=== PATIENT | male | born 1935 | race Caucasian/White ===

== ENCOUNTER → 2022-12-26 10:23 | Outpatient (CLI) | payer OTHER, SELFPAY ==
--- NOTE | ~2022-12-26 | MR_ITS ---
MRI of the right foot CLINICAL HISTORY: Osteomyelitis TECHNIQUE: Axial T1-weighted, T1 fat-sat, and T2 fat-sat images, coronal T1-weighted and proton-densi ty fat-sat, and sagittal T1-weighted and STIR images were acquired. Following intravenous administrat ion of 15 cc MultiHance gadolinium, T1-weighted fat-sat imaging was performed in the axial, coronal, and sagittal planes. FINDINGS: There is a soft tissue ulcer at the medial aspect of the great toe at the region of the fir st MTP joint. There is reactive marrow edema in the distal aspect of the first metatarsal, and the pr oximal aspect of the first proximal phalanx, consistent with reactive marrow edema or stress response . T1 marrow signal is relatively preserved in these regions. There is hypointense T1 marrow signal wi th edema in the medial hallux sesamoid. Early osteomyelitis cannot be excluded involving the sesamoid . There is underlying diffuse high-grade chondral malacia the first MTP joint, with joint space narrowi ng and probable small osteophytes. Large first MTP joint effusion is present, with apparent postcontr ast enhancement. Remaining joint spaces are unremarkable. Collateral ligaments appear intact. There is diffuse nonspecific edema of the intrinsic plantar musculature of the foot. Visualized plant ar fascia intact. There is mild dorsal subcutaneous soft tissue edema. IMPRESSION: Probable reactive marrow edema or stress response in the distal first metatarsal and first proximal p halanx rather than osteomyelitis. Possible osteomyelitis versus stress response in the medial hallux sesamoid. Large first MTP joint effusion with apparent postcontrast enhancement. Early septic arthritis is a co nsideration versus reactive joint effusion due to underlying moderate to advanced degenerative joint disease. Consider joint aspiration as indicated. Soft tissue ulcer at the medial aspect of the first MTP joint region. Nonspecific myositis the plantar musculature of the foot. Reviewed, dictated and finalized at location . IMPRESSION: Probable reactive marrow edema or stress response in the distal first metatarsa l and first proximal phalanx rather than osteomyelitis. Possible osteomyelitis versus stress response in the medial hallux sesamoid. Large first MTP joint effusion with apparent postcontrast enhancement. Early se ptic arthritis is a consideration versus reactive joint effusion due to underly ing moderate to advanced degenerative joint disease. Consider joint aspiration as indicated. Soft tissue ulcer at the medial aspect of the first MTP joint region. Nonspecific myositis the plantar musculature of the foot.
== END ==
PROVIDERS: PCP Internal Medicine Infectious Disease; Visit Provider Internal Medicine Infectious Disease
DX: M86.9 Osteomyelitis, unspecified (principal); M25.474 Effusion, right foot; L97.519 Non-pressure chronic ulcer of other part of right foot with unspecified severity
CPT/HCPCS: 73720; A9577

== ENCOUNTER 2024-08-20 09:02 | Observation (INO) | payer MEDICARE, SELFPAY ==
[2024-08-20] VITALS (23 sets, daily range): BP systolic 93–120; BP diastolic 52–84; PULSE 60–83; RESP 12–18; TEMP 36.4–36.9; O2SAT 92–100; BMI 24.1
--- NOTE | ~2024-08-20 | CT_ITS ---
EXAMINATION: CT brain wo con DATE: 08/20/2024 09:33 INDICATION: Altered mental status. TECHNIQUE: Computed tomography (CT) of the head was performed without intravenous contrast. The mA wa s adjusted according to patient size. Iterative reconstruction technique was employed. The dose-lengt h product was 605.33 mGy-cm. 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 There are scattered areas of low atten uation in the cerebral white matter, which is within normal limits for the patient's age. There is n o intracranial hemorrhage, acute infarction, or abnormal intracranial mass lesion. The ventricles are normal in size. There are likely changes of ocular lens replacement surgeries. There is mucosal thic kening in the paranasal sinuses. The mastoid air cells are normal. IMPRESSION: 1. Old infarct in the left cerebellum. Reviewed, dictated and finalized at location A. GLUE MAKER
--- NOTE | ~2024-08-20 | XR_ITS ---
XR chest 1V portable 08/21/2024 10:32 Indication: Pneumonia Procedure: AP portable chest Comparison: No prior studies for comparison. Findings: Heart size normal. Pacemaker leads are stable. No focal air space disease, pulmonary edema, pleural effusion or suspected pneumothorax. There is a left shoulder arthroplasty partially visualiz ed. There is osteoarthritis of the shoulders. Impression: 1: No acute cardiopulmonary disease. Reviewed, dictated and finalized at location B. ANALYST Impression: 1: No acute cardiopulmonary disease.
--- NOTE | 2024-08-20 09:04 | ECG_ITS ---
Test Date: 2024-08-20 09:07:41 Measurements Intervals [place] Rate: 71 P: 0 SC: 0 QRS: -74 QRSD: 178 T: 93 QT: 462 QTc: 505 Interpretive Statements ELECTRONIC VENTRICULAR PACEMAKER ABNORMAL RHYTHM ECG No previous ECG available for comparison Electronically Signed On 08-20-2024 09:56:26 PERSONAL INJURY ATTORNEY by Hever Aguilar M.D.
--- NOTE | 2024-08-20 09:23 | PC.NURSE ---
Upon arrival, pt unable to state birthdate. 0924 Pt able to state birthdate for registration.
[2024-08-20 09:28] LABS: Basophils Absolute Auto 0.1 K/mm3 (0.0-0.1); Basophils Percent Auto 1.1 % (0.2-1.2); Eosinophils Absolute Auto 0.2 K/mm3 (0-0.3); Eosinophils Percent Auto 2.6 % (0-4.4); Hematocrit 36.5 % (42.0-52.0); Hemoglobin 11.5 g/dL (14.0-18.0); Immature Granulocyte Absolute 0.04 K/mm3 (0.00-0.031); Immature Granulocyte Percent A 0.6 % (0-0.5); Lymphocytes Absolute Auto 1.79 K/mm3 (0.9-3.2); Lymphocytes Percent Auto 25.5 % (18.3-44.2); Mean Corpuscular HGB Conc 31.5 g/dl (32-36); Mean Corpuscular Hemoglobin 31.7 pg (26-34); Mean Corpuscular Volume 100.6 fl (80-100); Monocytes Absolute Auto 0.7 K/mm3 (0.1-0.6); Monocytes Percent Auto 9.8 % (2.6-8.5); Neutrophils Absolute Auto 4.2 K/mm3 (1.3-6.7); Neutrophils Percent Auto 60.4 % (45.5-73.1); Platelet Count Result 142 k/mm3 (150-375); Red Blood Count 3.63 M/mm3 (4.6-6.20); Red Cell Distribution Width 14.6 % (11.5-14.5)
--- NOTE | 2024-08-20 09:33 | PC.NURSE ---
0933 [facility] staff called to ask how much longer pt will be here, this RN let them know no results have come back yet since pt has only been here for 29 minutes.
[2024-08-20 09:39] LABS: Alanine Aminotransferase 21 U/L (6-50); Albumin Level 2.9 g/dL (3.5-5.1); Alkaline Phosphatase 68 U/L (38-126); Anion Gap 6 mmol/L (4-12); Aspartate Amino Transferase 26 U/L (17-59); Bilirubin,Total 0.7 mg/dL (0.2-1.3); Blood Urea Nitrogen 31 mg/dL (9-20); Calcium 8.3 mg/dL (8.4-10.2); Carbon Dioxide 22 mmol/L (22-30); Chloride 112 mmol/L (98-107); Estimated CRCL calculation 25 ml/min; Estimated Glomerular Filt Rate 30; Glucose 161 mg/dL (65-110); Potassium 3.7 mmol/L (3.4-5.0); Sodium 140 mmol/L (137-145)
[2024-08-20 09:42] LABS: INR 2.7; Prothrombin Time 29.7 Seconds (11.1-14.7)
[2024-08-20 09:43] LABS: Partial Thromboplastin Time 55.6 Seconds (22.3-36.8)
[2024-08-20 09:53] LABS: Add Urine Microscopic? YES; Appearance Urine Cloudy (Clear); Bacteria Urine Rare /hpf; Bilirubin Urine 1+ (Negative); Blood Urine Negative (Negative); Color Urine Dark Yellow (Yellow); Glucose Urine UA 3+ mg/dL (Negative); Hyaline Casts Urine Present /lpf; Ketones Urine Trace mg/dL (Negative); Leukocyte Esterase Ur Negative LEU/UL (Negative); Mucus Urine Present /lpf; Need Manual Microscopic Reviewed; Nitrate Urine Negative (Negative); Non Pathogenic Casts >20; Protein Urine 3+ mg/dL (Negative); Specific Grav Ur 1.027 (1.001-1.035); Squamous Epithelial Cell Urine Occasional /hpf (Few); pH Urine 5.5 (5.0-9.0)
--- NOTE | 2024-08-20 10:45 | ED_ITS ---
HPI - General Adult General Chief complaint: Altered Mental Status Stated complaint: ams Time Seen by Provider: 08/20/24 09:15 History of Present Illness HPI narrative: 89-year-old male present to the emergency department for evaluation for episode of altered mental status this morning. Patient was walking to breakfast when he paused and sit in the hallway and staff felt that he was confused they were able to ulcer him to a site area and confirmed that he was confused, patient does not recall this conversation. Patient was transferred to the emergency department by EMS. Upon arrival to the emergency department patient states he feels back to his baseline denies any complaints. Daughter is present states that the patient does appear back to his baseline but is still having some intermittent confusion. Related Data Home Medications Medication Instructions Recorded Confirmed Baby Aspirin 81 mg PO DAILY 08/20/24 08/20/24 Vitamin 28 - 800 tablet PO DAILY 08/20/24 08/20/24 albuterol sulfate 90 mcg/actuation 2 puff inhalation Q6H PRN 08/20/24 08/20/24 aerosol inhaler Shortness Of Breath Or Wheezing amlodipine 5 mg tablet 5 mg PO DAILY 08/20/24 08/20/24 atorvastatin 80 mg tablet 80 mg PO DAILY 08/20/24 08/20/24 budesonide-formoterol HFA 160 2 puff inhalation BID 08/20/24 08/20/24 mcg-4.5 mcg/actuation aerosol inhaler carvedilol 25 mg tablet 25 mg PO BID 08/20/24 08/20/24 cholecalciferol (vitamin D3) 25 mcg PO BID 08/20/24 08/20/24 cyanocobalamin (vitamin B-12) 1,000 mcg PO DAILY 08/20/24 08/20/24 dapagliflozin propanediol 5 mg 5 mg PO DAILY 08/20/24 08/20/24 tablet (Farxiga) donepezil 5 mg tablet 5 mg PO DAILY 08/20/24 08/20/24 gabapentin 100 mg capsule 200 mg PO BID 08/20/24 08/20/24 glipizide 2.5 mg tablet, extended 2.5 mg PO DAILY 08/20/24 08/20/24 release 24 hr ketoconazole 2 % shampoo See Rx Instructions .Route .COMPLEX 08/20/24 08/20/24 ketoconazole 2 % topical cream See Rx Instructions .Route 08/20/24 08/20/24 .COMPLEX PRN fungal infection lisinopril 40 mg tablet 40 mg PO DAILY 08/20/24 08/20/24 memantine 10 mg tablet 10 mg PO BID 08/20/24 08/20/24 montelukast 10 mg tablet 10 mg PO DAILY 08/20/24 08/20/24 omeprazole 20 mg capsule,delayed 20 mg PO DAILY 08/20/24 08/20/24 release rivaroxaban 20 mg tablet (Xarelto) 20 mg PO DAILY 08/20/24 08/20/24 Allergies Allergy/AdvReac Type Severity Reaction Status Date / Time daptomycin Allergy Unknown Verified 08/20/24 10:54 vancomycin Allergy Rash Verified 08/20/24 10:54 Review of Systems Review of Systems: All systems reviewed & are unremarkable except as noted in HPI and below PMFSH Past Medical History Medical History (Updated 08/20/24 @ 16:52 by Giovanna Castillo PA-C) 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 CT Chronic anticoagulation Gastroesophageal reflux disease Hyperlipidemia Hypertension Memory impairment Type 2 diabetes mellitus Surgical History Surgical History (Updated 08/20/24 @ 16:50 by Giovanna Castillo PA-C) History of permanent cardiac pacemaker placement Social History Social History (Updated 08/20/24 @ 16:50 by Giovanna Castillo PA-C) Social History: Surrogate medical decision maker: Code status: Smoking status: Former smoker Alcohol intake: former Substance use: never Do You Feel Safe in your Home?: Yes Lack of Transportation: No Lack of Food: Never True Current Housing: I Have Housing Concerned About Future Housing: No Difficulty Paying Gas/Electric Bills: No Difficulty Paying for Meds: No Currently Unemployed: No Education: High School Diploma/GED Difficulty w/ Childcare or Family Care: No Additional living arrangements comments: [place]. Spiritual care concerns: No Exam Narrative: APPEARANCE: Well appearing, no pain, no distress, well-nourished. HEAD: normocephalic, atraumatic. EYES: PERRLA/EOMI, conjunctivae clear. NOSE: Normal no drainage EARS:TMS clear with good light reflex. THROAT: Pharynx clear, no exudate. NECK: Supple. No adenopathy, no masses. RESPIRATORY: Airway patent, respirations nonlabored. Clear to auscultation bilaterally, no rales, rhonchi, wheezing. CARDIOVASCULAR: Regular rate and rhythm without murmurs rubs or gallops. ABDOMINAL: Soft, nontender, nondistended, normal bowel sounds MUSCULOSKELETAL: Moves all extremities. Strength/ROM intact, No edema, No calf tenderness. NEURO: Alert. Cranial nerves II through XII intact. Good gait. Good coordination SKIN: Warm, dry. Normal Color Course Course Emergency Course: The patient was admitted Vital Signs Vital signs: Vital Signs Temperature 97.6 F 08/20/24 08:59 Pulse Rate 70 08/20/24 08:59 Respiratory Rate 15 08/20/24 08:59 Blood Pressure 105/65 08/20/24 08:59 Pulse Oximetry 99 08/20/24 08:59 Oxygen Delivery Room Air 08/20/24 08:59 Temperature 98.5 F 08/20/24 16:39 Pulse Rate 66 08/20/24 16:39 Respiratory Rate 18 08/20/24 16:39 Blood Pressure 120/55 L 08/20/24 16:00 Pulse Oximetry 100 08/20/24 16:00 Oxygen Delivery Room Air 08/20/24 15:15 Medical Decision Making MDM Narrative Medical decision making narrative: 89-year-old male presenting to the emergency department for evaluation for altered mental status. Patient is afebrile with no leukocytosis and hemoglobin of 11.5. Patient's creatinine is 2.1 UA was concerning for urinary tract infection. Head CT showed no acute abnormality but did show an old infarct. Patient is back to his normal baseline per family. Patient was able to ambulate in the emergency department without issue. Patient was offered admission if he felt too weak to be cared for at his independent living but patient states he feels he is able to walk the distance to dinner. Patient will be discharged home. Patient will be started on Keflex for home for urinary tract infection. All questions concerns were addressed and patient was comfortable with plan for discharge. Prior to discharge patient had a large volume of emesis and a near syncopal episode. Patient was placed back in his room and patient family were agreeable to admission at this time Differential Diagnosis Differential Diagnosis: UTI, pneumonia, subdural hematoma, subarachnoid hemorrhage Vital Signs Vital Signs: Vital Signs Temperature 97.6 F 08/20/24 08:59 Pulse Rate 70 08/20/24 08:59 Respiratory Rate 15 08/20/24 08:59 Blood Pressure 105/65 08/20/24 08:59 Pulse Oximetry 99 08/20/24 08:59 Oxygen Delivery Room Air 08/20/24 08:59 Temperature 98.5 F 08/20/24 16:39 Pulse Rate 66 08/20/24 16:39 Respiratory Rate 18 08/20/24 16:39 Blood Pressure 120/55 L 08/20/24 16:00 Pulse Oximetry 100 08/20/24 16:00 Oxygen Delivery Room Air 08/20/24 15:15 Lab Data Lab results reviewed: Yes I reviewed the patient's lab results. 08/20/24 09:19 08/20/24 09:19 Labs: Lab Results 08/20/24 08/20/24 Range/Units 09:19 12:52 WBC 7.0 (4.5-10.0) K/mm3 RBC 3.63 L (4.6-6.20) M/mm3 Hgb 11.5 L (14.0-18.0) g/dL Hct 36.5 L (42.0-52.0) % MCV 100.6 H (80-100) fl MCH 31.7 (26-34) pg MCHC 31.5 L (32-36) g/dl RDW 14.6 H (11.5-14.5) % Plt Count 142 L (150-375) k/mm3 MPV 9.0 (7.4-10.4) fl Immature Gran % (Auto) 0.6 H (0-0.5) % Neut % (Auto) 60.4 (45.5-73.1) % Lymph % (Auto) 25.5 (18.3-44.2) % [place] % (Auto) 9.8 H (2.6-8.5) % Eos % (Auto) 2.6 (0-4.4) % Baso % (Auto) 1.1 (0.2-1.2) % Lymph # (Auto) 1.79 (0.9-3.2) K/mm3 [place] # (Auto) 0.7 H (0.1-0.6) K/mm3 Eos # (Auto) 0.2 (0-0.3) K/mm3 Baso # (Auto) 0.1 (0.0-0.1) K/mm3 Abs Immat Gran (auto) 0.04 H (0.00-0.031) K/mm3 Absolute Neuts (auto) 4.2 (1.3-6.7) K/mm3 Absolute Nucleated RBC 0.000 (0.0-0.012) K/mm3 Nucleated RBC % 0.0 (0.0-0.2) % PT 29.7 H (11.1-14.7) Seconds INR 2.7 APTT 55.6 H (22.3-36.8) Seconds Sodium 140 (137-145) mmol/L Potassium 3.7 (3.4-5.0) mmol/L Chloride 112 H (98-107) mmol/L Carbon Dioxide 22 (22-30) mmol/L Anion Gap 6 (4-12) mmol/L BUN 31 H (9-20) mg/dL Creatinine 2.10 H (0.7-1.3) mg/dL Estim Creat Clear Calc 25 ml/min Estimated GFR 30 L (59 - ) Glucose 161 H (65-110) mg/dL Calcium 8.3 L (8.4-10.2) mg/dL Total Bilirubin 0.7 (0.2-1.3) mg/dL AST 26 (17-59) U/L ALT 21 (6-50) U/L Alkaline Phosphatase 68 (38-126) U/L Total Protein 6.0 L (6.3-8.2) g/dL Albumin 2.9 L (3.5-5.1) g/dL Urine Color Dark yellow (Yellow) Urine Appearance Cloudy H (Clear) Urine pH 5.5 (5.0-9.0) Ur Specific [place] 1.027 (1.001-1.035) Urine Protein 3+ H (Negative) mg/dL Urine Glucose (UA) 3+ H (Negative) mg/dL Urine Ketones Trace H (Negative) mg/dL Ur Blood (Man) Negative (Negative) Urine Nitrate Negative (Negative) Urine Bilirubin 1+ H (Negative) Urine Urobilinogen 1.0 (<2.0) mg/dL Add Ur Microanalysis Reviewed Leukocyte Esterase Rfl Negative (Negative) CORA/UL Urine RBC 3-5 H (0-2) /hpf Urine WBC 11-20 H (0-3) /hpf Ur Squamous Epith Cells Occasional (Few) /hpf Urine Bacteria Rare /hpf Urine Casts >20 Hyaline Casts Present (None) /lpf Urine Mucus Present /lpf Group A Strep (PCR) Not detected (Negative) Imaging Data Radiologist's impression: Impressions Head CT 08/20/24 09:38 IMPRESSION: 1. Old infarct in the left cerebellum. Discharge Plan Discharge Clinical Impression: Altered mental status, Acute UTI Patient Disposition: Still a Patient Condition: Stable
[2024-08-20] MEDS: SODIUM CHLORIDE 0.9% IV 1,000 ML 999 ML IV CONT (11:08)
--- NOTE | 2024-08-20 11:14 | PC.NURSE ---
Meal tray ordered for pt.
[2024-08-20 13:27] LABS: Strep Group A RT-PCR NOT DETECTED (Negative)
--- NOTE | 2024-08-20 14:05 | PM.IMHP ---
H&P: HPI History of Present Illness Date/Time: 08/20/24 14:45 Chief Complaint: Altered mental status. Narrative: This is an 89-year-old male with history of dementia, paroxysmal atrial fibrillation, status post permanent pacemaker implantation, right lower extremity deep venous thrombosis, hypertension, hyperlipidemia, asthma, type 2 diabetes mellitus, gastroesophageal reflux disease, and prostate cancer who presented to the emergency department via EMS from [place] for evaluation of altered mental status. He is a poor historian and seems have significant short-term memory loss and a majority the following is obtained via a review of his EMR. He is also not entirely cooperative as ?I just want to bed and I do not want answer any more questions.? According to the ED notes, the patient was walking to breakfast when he paused and sat down the hallway. He seems to be much more confused than baseline and was brought in for evaluation. There are no reports of recent falls, head trauma, or illnesses. The patient has no complaints but again he is not answering all of my questions. He did specifically deny headache, cold and flu symptoms, chest pain, shortness of breath, abdominal pain, nausea, vomiting, diarrhea, and dysuria. In the ED: He was afebrile on arrival with blood pressures in the upper 90s to lower 100s systolic. The remainder of his vital signs were stable. Labs were significant for a WBC count of 7.0, hemoglobin 11.5, MCV 100.6, platelet 142, PT 29.7, INR 2.7, PTT 55.6, BUN 31, creatinine 2.10, glucose 161, total protein 6.0, albumin 2.9. Urinalysis was positive for 3+ protein, 3+ glucose, trace ketones, 1+ bilirubin, 3 to 5 rbc's, and 11 to 20 WBC. Rare bacteria, occasional squamous cells, and casts noted on microscopy. 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 He was given a L of normal saline and ceftriaxone 1 g for possible urinary tract infection. With shared medical decision-making, family felt more comfortable sending the patient back to [place]. Just before he was being discharged from the ED he passed a large bowel movement and had a brief episode of unresponsiveness and he is being admitted in this setting. Review of Systems Review of Systems: Unable to be obtained accurately given his significant memory loss. 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 Chronic anticoagulation Deep vein thrombosis of right lower extremity Dementia Gastroesophageal reflux disease Hyperlipidemia Hypertension Paroxysmal atrial fibrillation Prostate cancer Type 2 diabetes mellitus Surgical History Surgical History (Updated 08/20/24 @ 22:49 by Giovanna Castillo PA-C) History of permanent cardiac pacemaker placement (08/12/23) Family History Family History (Updated 08/20/24 @ 22:50 by Giovanna Castillo PA-C) Other Family history unknown Social History Social History (Updated 08/20/24 @ 22:50 by Giovanna Castillo PA-C) Social History: Healthcare power of commonwealth attorney: Jayla Ferguson. Code status: Do not resuscitate. Smoking status: Former smoker Alcohol intake: former Substance use: never Do You Feel Safe in your Home?: Yes Lack of Transportation: No Lack of Food: Never True Current Housing: I Have Housing Concerned About Future Housing: No Difficulty Paying Gas/Electric Bills: No Difficulty Paying for Meds: No Currently Unemployed: No Education: High School Diploma/GED Difficulty w/ Childcare or Family Care: No Additional living arrangements comments: [place]. Spiritual care concerns: No Meds Home Medications and Allergies Home Medications Medication Instructions Recorded Confirmed Type Baby Aspirin 81 mg PO DAILY 08/20/24 08/20/24 History Vitamin 28 - 800 tablet PO DAILY 08/20/24 08/20/24 History albuterol sulfate 90 mcg/actuation 2 puff inhalation Q6H PRN 08/20/24 08/20/24 History aerosol inhaler Shortness Of Breath Or Wheezing amlodipine 5 mg tablet 5 mg PO DAILY 08/20/24 08/20/24 History atorvastatin 80 mg tablet 80 mg PO DAILY 08/20/24 08/20/24 History budesonide-formoterol HFA 160 2 puff inhalation BID 08/20/24 08/20/24 History mcg-4.5 mcg/actuation aerosol inhaler carvedilol 25 mg tablet 25 mg PO BID 08/20/24 08/20/24 History cephalexin 500 mg tablet 500 mg PO Q8H 7 days #21 tabs 08/20/24 Rx cholecalciferol (vitamin D3) 25 mcg PO BID 08/20/24 08/20/24 History cyanocobalamin (vitamin B-12) 1,000 mcg PO DAILY 08/20/24 08/20/24 History dapagliflozin propanediol 5 mg 5 mg PO DAILY 08/20/24 08/20/24 History tablet (Farxiga) donepezil 5 mg tablet 5 mg PO DAILY 08/20/24 08/20/24 History gabapentin 100 mg capsule 200 mg PO BID 08/20/24 08/20/24 History glipizide 2.5 mg tablet, extended 2.5 mg PO DAILY 08/20/24 08/20/24 History release 24 hr ketoconazole 2 % shampoo See Rx Instructions .Route .COMPLEX 08/20/24 08/20/24 History ketoconazole 2 % topical cream See Rx Instructions .Route 08/20/24 08/20/24 History .COMPLEX PRN fungal infection lisinopril 40 mg tablet 40 mg PO DAILY 08/20/24 08/20/24 History memantine 10 mg tablet 10 mg PO BID 08/20/24 08/20/24 History montelukast 10 mg tablet 10 mg PO DAILY 08/20/24 08/20/24 History omeprazole 20 mg capsule,delayed 20 mg PO DAILY 08/20/24 08/20/24 History release rivaroxaban 20 mg tablet (Xarelto) 20 mg PO DAILY 08/20/24 08/20/24 History Allergies Allergy/AdvReac Type Severity Reaction Status Date / Time daptomycin Allergy Unknown Verified 08/20/24 10:54 vancomycin Allergy Rash Verified 08/20/24 10:54 Vital Signs Vital Signs - 24 hr 08/20/24 08:59 08/20/24 09:04 08/20/24 09:04 Temperature 97.6 F Pulse Rate 70 78 Respiratory Rate 15 Blood Pressure 105/65 Pulse Oximetry 99 Oxygen Delivery Room Air Room Air 08/20/24 09:16 08/20/24 09:45 08/20/24 09:46 Temperature Pulse Rate 72 70 71 Respiratory Rate 15 13 16 Blood Pressure 103/61 103/58 L 93/56 L Pulse Oximetry 98 Oxygen Delivery 08/20/24 09:47 08/20/24 10:00 08/20/24 10:01 Temperature Pulse Rate 70 70 70 Respiratory Rate 16 14 16 Blood Pressure 97/56 L Pulse Oximetry Oxygen Delivery 08/20/24 10:15 08/20/24 10:16 08/20/24 10:40 Temperature Pulse Rate 70 70 83 Respiratory Rate 14 14 14 Blood Pressure 95/59 L Pulse Oximetry Oxygen Delivery 08/20/24 10:46 08/20/24 11:01 08/20/24 11:20 Temperature Pulse Rate 71 72 70 Respiratory Rate 13 15 12 Blood Pressure 102/52 L 100/59 L Pulse Oximetry Oxygen Delivery 08/20/24 11:56 08/20/24 12:00 08/20/24 12:02 Temperature Pulse Rate 71 70 73 Respiratory Rate 14 18 17 Blood Pressure 112/84 Pulse Oximetry 98 Oxygen Delivery 08/20/24 12:20 08/20/24 13:53 Temperature Pulse Rate 72 75 Respiratory Rate 16 18 Blood Pressure 99/58 L Pulse Oximetry 92 Oxygen Delivery Exam Narrative: General: Nontoxic-appearing male lying on his right side in bed. Weight: 85.2 kg. BMI: 24.1. HEENT: Normocephalic, atraumatic. PERRL, EOMI. Sclera anicteric. Tacky mucous membranes. Oropharynx poorly visualized. Neck: Supple. No obvious thyromegaly or carotid bruits though he is not very cooperative with exam. Respiratory: Respirations are nonlabored. Lung sounds are diminished due to poor effort. Cardiovascular: Regular rate and rhythm with S1-S2. Gastrointestinal: Abdomen is soft, nontender, and nondistended with positive bowel sounds. Skin: Warm and dry. No rash or lesions on limited exam. Extremities: No cyanosis, clubbing, or edema. Atrophy of the lower legs. Radial and pedal pulses intact. Neurological: Alert to self. He was unable to answer any other orientation questions. Cranial nerves 2-12 are grossly intact. Speech is clear. No facial asymmetry. He did not participate in the rest of the neurologic exam. Psychiatric: Confused and calm. Occasionally cooperative. H&P: Results Labs Labs: Short CBC 08/20/24 Range/Units 09:19 WBC 7.0 (4.5-10.0) K/mm3 Hgb 11.5 L (14.0-18.0) g/dL Hct 36.5 L (42.0-52.0) % Plt Count 142 L (150-375) k/mm3 [facility] 08/20/24 09:19 Sodium 140 Potassium 3.7 Chloride 112 H Carbon Dioxide 22 BUN 31 H Creatinine 2.10 H Glucose 161 H Calcium 8.3 L Liver Function 08/20/24 Range/Units 09:19 Total Bilirubin 0.7 (0.2-1.3) mg/dL AST 26 (17-59) U/L ALT 21 (6-50) U/L Alkaline Phosphatase 68 (38-126) U/L Albumin 2.9 L (3.5-5.1) g/dL Urine 08/20/24 Range/Units 09:19 Urine Color Dark yellow (Yellow) Urine Appearance Cloudy H (Clear) Urine pH 5.5 (5.0-9.0) Ur Specific [place] 1.027 (1.001-1.035) Urine Protein 3+ H (Negative) mg/dL Urine Glucose (UA) 3+ H (Negative) mg/dL Imaging Head CT 08/20/24 09:38 IMPRESSION: 1. Old infarct in the left cerebellum. Assessment and Plan Assessment and plan (1) Altered mental status: Code(s): R41.82 - Altered mental status, unspecified Status: Acute (2) Near syncope: Code(s): R55 - Syncope and collapse Status: Acute (3) Renal failure: Code(s): N19 - Unspecified kidney failure Status: Acute (4) Macrocytic anemia: Code(s): D53.9 - Nutritional anemia, unspecified Status: Acute (5) Abnormal urinalysis: Code(s): R82.90 - Unspecified abnormal findings in urine Status: Acute (6) Hypertension: Code(s): I10 - Essential (primary) hypertension Status: Acute (7) Hyperlipidemia: Code(s): E78.5 - Hyperlipidemia, unspecified Status: Acute (8) Type 2 diabetes mellitus: Code(s): E11.9 - Type 2 diabetes mellitus without complications Status: Acute (9) Dementia: Code(s): F03.90 - Unspecified dementia, unspecified severity, without behavioral disturbance, psychotic disturbance, mood disturbance, and anxiety Status: Acute (10) Paroxysmal atrial fibrillation: Code(s): I48.0 - Paroxysmal atrial fibrillation Status: Acute Plan The patient presented to the emergency department for evaluation of altered mental status as detailed in HPI. Labs, imaging, EKG, and all reports were personally reviewed. He seems to suffer from significant short-term memory loss and is a poor historian. It is my understanding that he was back to his baseline mentation and was to be discharged home however he had a near syncopal episode after having a large bowel movement and is being admitted for observation. Most likely this was a vasovagal response however blood pressures have been a bit soft. He will be monitored on telemetry overnight. Check orthostatic vital signs. He looks a bit dry on exam and will be hydrated overnight. Baseline renal function is unknown but his BUN and creatinine are 31 and 2.10 respectively. Records requested from his primary care provider for comparison. Bladder scan to rule out urinary retention. Hold nephrotoxic agents for now and till we can determine his baseline renal function. Urinalysis is abnormal however is not highly suspicious for UTI thus will hold on further antibiotics pending urine culture. Initiate fall precautions. Check iron studies, B12, and folate for evaluation of anemia. Hold glipizide for now given increase creatinine. Initiate sliding scale insulin, Accu-Cheks, and hypoglycemic protocol. Check hemoglobin A1c. He currently sounds to be in a sinus rhythm. His home medications will be reviewed and resumed as appropriate. The patient's medical management will be taken over by the hospitalist team in a.m. Quality VTE Prophylaxis VTE prophylaxis: pharmacologic ordered (on rivaroxaban) The patient has been admitted under observation status. Hospitalist MIPS Advance Care Plan I have confirmed that the patient's Advanced Care Plan is present, code status is documented, or surrogate decision maker is listed in patient medical record.: Yes Medication Reconciliation I have utilized all available resources to obtain, update and review the patients current medications (includes all prescriptions, OTC, herbals, cannabis, and nutritional supplements).: Yes
[2024-08-20] MEDS: ONDANSETRON INJ 4 MG/2 ML VIAL IV PUSH (15:09)
--- NOTE | 2024-08-20 16:36 | ADMGEN ---
This patient, aMurice Rodney, was admitted to [facility] Surg Room 322-02. Patient/family oriented to hospital policies and general routines including ID bracelet, bed and alarms, visiting hours, pain management, procedures, bathroom and other care routines, personal items, smoking policy, room service/diet, and visiting hours. Information on how to activate the Rapid Response Team has been discussed. Patient/Family are encouraged to report perceived risks to care and to ask questions if they do not understand what they are told or what they should do.
[2024-08-20] MEDS: GABAPENTIN 100 MG CAPSULE 200 MG PO (20:32)
[2024-08-20 20:42] LABS: Glucose Point of Care 171 mg/dl (65-105)
[2024-08-20 20:58] LABS: Iron 32 ug/dL (49-181)
[2024-08-20 21:08] LABS: Percent Iron Saturation 14 % (20-50)
[2024-08-20 21:25] LABS: Prealbumin 12.8 mg/dL (17.6-36.0)
[2024-08-20 22:06] LABS: Folic Acid > 20.0 ng/mL (2.76->20); Vitamin B12 > 1000.0 pg/mL (239-931)
[2024-08-20 22:52] LABS: Hemoglobin A1C 6.8 % (<5.7)
[2024-08-20] MEDS: LACTATED RINGERS 1,000 ML 100 ML IV CONT (23:25)
[2024-08-21] VITALS (11 sets, daily range): BP systolic 115–141; BP diastolic 55–71; PULSE 58–70; RESP 14–18; TEMP 36.4–37; O2SAT 93–100
[2024-08-21 07:06] LABS: Hematocrit 37.3 % (42.0-52.0); Hemoglobin 11.9 g/dL (14.0-18.0); Mean Corpuscular HGB Conc 31.9 g/dl (32-36); Mean Corpuscular Hemoglobin 32.1 pg (26-34); Mean Corpuscular Volume 100.5 fl (80-100); Mean Platelet Volume 9.5 fl (7.4-10.4); Platelet Count Result 162 k/mm3 (150-375); Red Blood Count 3.71 M/mm3 (4.6-6.20); Red Cell Distribution Width 14.7 % (11.5-14.5); White Blood Count 12.3 K/mm3 (4.5-10.0)
[2024-08-21 07:20] LABS: Anion Gap 5 mmol/L (4-12); Blood Urea Nitrogen 36 mg/dL (9-20); Calcium 7.9 mg/dL (8.4-10.2); Carbon Dioxide 20 mmol/L (22-30); Chloride 116 mmol/L (98-107); Estimated CRCL calculation 29 ml/min; Estimated Glomerular Filt Rate 36; Glucose 95 mg/dL (65-110); Magnesium 2.1 mg/dL (1.6-2.3); Potassium 4.1 mmol/L (3.4-5.0); Sodium 141 mmol/L (137-145)
[2024-08-21 07:44] LABS: Glucose Point of Care 94 mg/dl (65-105)
[2024-08-21] MEDS: FLUTICASONE/SALMETEROL 115-21 MCG INHALER 1 PUFF 2 PUFF INHALATION ×2 (08:22→20:30)
[2024-08-21] MEDS: RIVAROXABAN 20 MG TABLET PO (08:29)
[2024-08-21] MEDS: CYANOCOBALAMIN 1,000 MCG TABLET 1000 MCG PO (08:29)
[2024-08-21] MEDS: MEMANTINE 10 MG TABLET PO ×2 (08:29→16:48)
[2024-08-21] MEDS: PANTOPRAZOLE 40 MG TABLET PO (08:29)
[2024-08-21] MEDS: EMPAGLIFLOZIN 10 MG TABLET BY MOUTH (08:30)
[2024-08-21] MEDS: ATORVASTATIN 40 MG TABLET 80 MG PO (08:30)
[2024-08-21] MEDS: DONEPEZIL HCL 5 MG TABLET PO (08:30)
[2024-08-21] MEDS: carvediloL 25 MG TABLET PO ×2 (08:30→21:01)
[2024-08-21] MEDS: GABAPENTIN 100 MG CAPSULE 200 MG PO ×2 (08:30→21:01)
[2024-08-21] MEDS: ASPIRIN 81 MG CHEWABLE TABLET PO (08:31)
[2024-08-21] MEDS: CHOLECALCIFEROL 1,000 UNITS TABLET 1000 UNITS PO (08:35)
[2024-08-21 11:19] LABS: Glucose Point of Care 401 mg/dl (65-105)
[2024-08-21] MEDS: INSULIN ASPART (*BKC) 100 UNITS/ML 6 UNITS SUB-Q (11:38)
[2024-08-21] MEDS: cefTRIAXone 2 GM/NS 100 ML 2 GM/100 ML BAG IVPB (12:37)
[2024-08-21 12:54] LABS: Glucose Point of Care 119 mg/dl (65-105)
[2024-08-21 15:38] LABS: Glucose Point of Care 123 mg/dl (65-105)
[2024-08-21 16:29] LABS: Glucose Point of Care 267 mg/dl (65-105)
[2024-08-21] MEDS: INSULIN ASPART (*BKC) 100 UNITS/ML SUB-Q (16:48)
--- NOTE | 2024-08-21 17:49 | P.PNIM_ITS ---
Progress Note: A&P Assessment and Plan (1) Altered mental status: Code(s): R41.82 - Altered mental status, unspecified Status: Acute (2) Near syncope: Code(s): R55 - Syncope and collapse Status: Acute (3) Renal failure: Code(s): N19 - Unspecified kidney failure Status: Acute (4) Macrocytic anemia: Code(s): D53.9 - Nutritional anemia, unspecified Status: Acute (5) Abnormal urinalysis: Code(s): R82.90 - Unspecified abnormal findings in urine Status: Acute (6) Hypertension: Code(s): I10 - Essential (primary) hypertension Status: Acute (7) Hyperlipidemia: Code(s): E78.5 - Hyperlipidemia, unspecified Status: Acute (8) Type 2 diabetes mellitus: Code(s): E11.9 - Type 2 diabetes mellitus without complications Status: Acute (9) Dementia: Code(s): F03.90 - Unspecified dementia, unspecified severity, without behavioral disturb ance, psychotic disturbance, mood disturbance, and anxiety Status: Acute (10) Paroxysmal atrial fibrillation: Code(s): I48.0 - Paroxysmal atrial fibrillation Status: Acute Plan The patient presented to the emergency department for evaluation of altered mental status as detailed in HPI. Labs, imaging, EKG, and all reports were personally reviewed. He seems to suffer from significant short-term memory loss and is a poor historian. It is my understanding that he was back to his baseline mentation and was to be discharged home however he had a near syncopal episode after having a large bowel movement and is being admitted for observation. Most likely this was a vasovagal response however blood pressures have been a bit soft. He will be monitored on telemetry overnight. Check orthostatic vital signs. He looks a bit dry on exam and will be hydrated overnight. Baseline renal function is unknown but his BUN and creatinine are 31 and 2.10 respectively. Records requested from his primary care provider for comparison. Bladder scan to rule out urinary retention. Hold nephrotoxic agents for now and till we can determine his baseline renal function. Urinalysis is abnormal however is not highly suspicious for UTI thus will hold on further antibiotics pending urine culture. Initiate fall precautions. Check iron studies, B12, and folate for evaluation of anemia. Hold glipizide for now given increase creatinine. Initiate sliding scale insulin, Accu-Cheks, and hypoglycemic protocol. Check hemoglobin A1c. He currently sounds to be in a sinus rhythm. His home medications will be reviewed and resumed as appropriate. Started on ceftriaxone for UTI. Urine culture is pending. Subjective Date/time seen: 08/21/24 17:49 Interval history: Patient was evaluated at the bedside. Patient daughter was present. She reports patient have aortic stenosis and does not want to get any fluid. Chest x-ray ordered and shows no significant abnormality. Review of Systems Review of Systems: Unable to be obtained accurately given his significant memory loss. Exam Narrative: General: Nontoxic-appearing male lying on his right side in bed. Weight: 85.2 kg. BMI: 24.1. HEENT: Normocephalic, atraumatic. PERRL, EOMI. Sclera anicteric. Tacky mucous membranes. Oropharynx poorly visualized. Neck: Supple. No obvious thyromegaly or carotid bruits though he is not very cooperative with exam. Respiratory: Respirations are nonlabored. Lung sounds are diminished due to poor effort. Cardiovascular: Regular rate and rhythm with S1-S2. Gastrointestinal: Abdomen is soft, nontender, and nondistended with positive bowel sounds. Skin: Warm and dry. No rash or lesions on limited exam. Extremities: No cyanosis, clubbing, or edema. Atrophy of the lower legs. Radial and pedal pulses intact. Neurological: Alert to self. He was unable to answer any other orientation questions. Cranial nerves 2-12 are grossly intact. Speech is clear. No facial asymmetry. He did not participate in the rest of the neurologic exam. Psychiatric: Confused and calm. Occasionally cooperative. Objective Data Vital Signs Vital Signs: Vital Signs - 24 hr 08/20/24 20:28 08/20/24 20:00 08/20/24 20:00 Temperature 98.1 F Pulse Rate 60 60 Respiratory Rate 14 Blood Pressure 102/56 L Pulse Oximetry 97 Oxygen Delivery Room Air 08/20/24 20:00 08/21/24 00:00 08/21/24 04:00 Temperature Pulse Rate 62 60 60 Respiratory Rate Blood Pressure Pulse Oximetry Oxygen Delivery 08/21/24 08:22 08/21/24 08:26 08/21/24 08:30 Temperature 97.5 F L Pulse Rate 70 70 Respiratory Rate 18 Blood Pressure 125/71 Pulse Oximetry 94 94 Oxygen Delivery Room Air 08/21/24 08:29 08/21/24 08:29 08/21/24 08:29 Temperature 97.5 F L Pulse Rate 70 61 Respiratory Rate 18 Blood Pressure 125/71 Pulse Oximetry 94 93 Oxygen Delivery Room Air 08/21/24 14:44 08/21/24 12:00 08/21/24 16:00 Temperature 98.4 F Pulse Rate 58 L 58 L 62 Respiratory Rate 18 Blood Pressure 141/62 H Pulse Oximetry 99 Oxygen Delivery Intake/Output Intake/Output: Intake & Output 08/18/24 08/19/24 08/20/24 08/21/24 23:59 23:59 23:59 23:59 Intake Total 1840 1999 Output Total 15 Balance 1825 1999 Meds/Results Medications: Active Medications Generic Name Dose Route Start Last Admin Trade Name Freq PRN Reason Stop Dose Admin Albuterol 2 puff 08/20/24 19:44 Albuterol Sulfate (*Sp) Aerosol 1 Puff INHALATION Q6H PRN Shortness Of Breath Or Wheezing Amlodipine Besylate 5 mg 08/22/24 09:00 Amlodipine Besylate 5 Mg Tablet PO DAILY MARIA LUZ Aspirin 81 mg 08/21/24 08:00 08/21/24 08:31 Aspirin 81 Mg Chewable Tablet PO 81 mg DAILY@0800 MARIA LUZ Administration Atorvastatin Calcium 80 mg 08/21/24 09:00 08/21/24 08:30 Atorvastatin 40 Mg Tablet PO 80 mg DAILY MARIA LUZ Administration Carvedilol 25 mg 08/20/24 21:00 08/21/24 08:30 Carvedilol 25 Mg Tablet PO 25 mg Q12HR MARIA LUZ Administration Cyanocobalamin 1,000 mcg 08/21/24 09:00 08/21/24 08:29 Cyanocobalamin 1,000 Mcg Tablet PO 1,000 mcg QAM MARIA LUZ Administration Dextrose 12.5 gm 08/20/24 19:45 Dextrose 50% 25 Gm/50 Ml Syringe IV PUSH PRN PRN Hypoglycemia Protocol Donepezil HCl 5 mg 08/21/24 09:00 08/21/24 08:30 Donepezil Hcl 5 Mg Tablet PO 5 mg DAILY MARIA LUZ Administration Empagliflozin 10 mg 08/21/24 09:00 08/21/24 08:30 Empagliflozin 10 Mg Tablet BY MOUTH 10 mg DAILY MARIA LUZ Administration Gabapentin 200 mg 08/20/24 21:00 08/21/24 08:30 Gabapentin 100 Mg Capsule PO 200 mg Q12HR MARIA LUZ Administration Glipizide 2.5 mg 08/22/24 09:00 Glipizide Xl 2.5 Mg Tab.Er.24 PO DAILY MARIA LUZ Glucagon 1 mg 08/20/24 19:45 Glucagon For Inj 1 Mg Vial IM PRN PRN Hypoglycemia Protocol Glucose 15 gm 08/20/24 19:45 Glucose Oral Gel 15 Gm Of Glucse In 37.5 Gm Tube PO PRN PRN Hypoglycemia Protocol Dextrose 1,000 mls @ 100 mls/hr 08/20/24 19:45 Dextrose 5% 1,000 Ml IVPB PRN PRN Hypoglycemia Protocol Ceftriaxone Sodium 2 gm in 100 mls @ 200 mls/hr 08/21/24 12:00 08/21/24 12:37 Rocephin 2 Gm/Ns 100 Ml IVPB 200 mls/hr Q24H MARIA LUZ Administration Insulin Aspart 2 - 5 units 08/21/24 08:00 08/21/24 16:48 Insulin Aspart (*Bkc) 100 Units/Ml SUB-Q 3 units TIDWM MARIA LUZ Administration Protocol Insulin Aspart 1 - 2 units 08/20/24 21:00 08/20/24 20:32 Insulin Aspart (*Bkc) 100 Units/Ml SUB-Q Not Given HS [facility] Protocol Memantine 10 mg 08/21/24 09:00 08/21/24 16:48 Memantine 10 Mg Tablet PO 10 mg BID MARIA LUZ Administration Miscellaneous Information 1 each 08/20/24 00:01 Montelukast Entered As Daily. Comments State At Hs. Please Clarify Which Order Is Correc XX 09/19/24 00:00 CLARIFY MARIA LUZ Montelukast Sodium 10 mg 08/21/24 21:00 Montelukast Sodium 10 Mg Tablet PO HS MARIA LUZ Ondansetron HCl 4 mg 08/20/24 13:55 08/20/24 15:09 Ondansetron Inj 4 Mg/2 Ml Vial IV PUSH 4 mg Q4H PRN Administration Nausea Pantoprazole Sodium 40 mg 08/21/24 09:00 08/21/24 08:29 Pantoprazole 40 Mg Tablet PO 40 mg QAM MARIA LUZ Administration Rivaroxaban 20 mg 08/21/24 09:00 08/21/24 08:29 Rivaroxaban 20 Mg Tablet PO 20 mg DAILY MARIA LUZ Administration Fluticasone/Salmeterol 2 puff 08/21/24 08:00 08/21/24 08:22 Fluticasone/Salmeterol 115-21 Mcg Inhaler 1 Puff INHALATION 2 puff Q12HRT MARIA LUZ Administration Vitamin D 1,000 units 08/21/24 09:00 08/21/24 08:35 Cholecalciferol 1,000 Units Tablet PO 1,000 units DAILY MARIA LUZ Administration Radiology Results: ITS Impressions Head CT 08/20/24 09:38 IMPRESSION: 1. Old infarct in the left cerebellum. Chest X-Ray 08/21/24 11:26 Impression: 1: No acute cardiopulmonary disease. Labs Labs: Laboratory Results - last 24 hr 08/20/24 08/20/24 08/21/24 09:19 20:24 06:46 WBC 12.3 H RBC 3.71 L Hgb 11.9 L Hct 37.3 L MCV 100.5 H MCH 32.1 MCHC 31.9 L RDW 14.7 H Plt Count 162 MPV 9.5 Sodium 141 Potassium 4.1 Chloride 116 H Carbon Dioxide 20 L Anion Gap 5 BUN 36 H Creatinine 1.80 H Estim Creat Clear Calc 29 Estimated GFR 36 L Glucose 95 POC Capillary Glucose 171 H Hemoglobin A1c 6.8 H Calcium 7.9 L Magnesium 2.1 Iron 32 L TIBC 226 L % Saturation 14 L Ferritin 139.00 Prealbumin 12.8 L Vitamin B12 > 1000.0 H Folate > 20.0 H TSH (Reflex) 2.170 08/21/24 08/21/24 08/21/24 07:26 11:12 12:39 WBC RBC Hgb Hct MCV MCH MCHC RDW Plt Count MPV Sodium Potassium Chloride Carbon Dioxide Anion Gap BUN Creatinine Estim Creat Clear Calc Estimated GFR Glucose POC Capillary Glucose 94 401 H 119 H Hemoglobin A1c Calcium Magnesium Iron TIBC % Saturation Ferritin Prealbumin Vitamin B12 Folate TSH (Reflex) 08/21/24 08/21/24 15:17 16:23 WBC RBC Hgb Hct MCV MCH MCHC RDW Plt Count MPV Sodium Potassium Chloride Carbon Dioxide Anion Gap BUN Creatinine Estim Creat Clear Calc Estimated GFR Glucose POC Capillary Glucose 123 H 267 H Hemoglobin A1c Calcium Magnesium Iron TIBC % Saturation Ferritin Prealbumin Vitamin B12 Folate TSH (Reflex) Quality VTE Prophylaxis VTE prophylaxis: pharmacologic ordered (on rivaroxaban) Hospitalist MIPS Advance Care Plan I have confirmed that the patient's Advanced Care Plan is present, code status is documented, or surrogate decision maker is listed in patient medical record.: Yes Medication Reconciliation I have utilized all available resources to obtain, update and review the patients current medications (includes all prescriptions, OTC, herbals, cannabis, and nutritional supplements).: Yes
[2024-08-21] MEDS: MONTELUKAST SODIUM 10 MG TABLET PO (21:01)
[2024-08-21 22:01] LABS: Glucose Point of Care 112 mg/dl (65-105)
[2024-08-22] VITALS (7 sets, daily range): BP systolic 141–165; BP diastolic 59–65; PULSE 60–89; RESP 18; TEMP 36.3–36.7; O2SAT 94–98
[2024-08-22 07:07] LABS: Hematocrit 35.9 % (42.0-52.0); Hemoglobin 11.3 g/dL (14.0-18.0); Mean Corpuscular HGB Conc 31.5 g/dl (32-36); Mean Corpuscular Hemoglobin 31.7 pg (26-34); Mean Corpuscular Volume 100.6 fl (80-100); Mean Platelet Volume 9.3 fl (7.4-10.4); Platelet Count Result 154 k/mm3 (150-375); Red Blood Count 3.57 M/mm3 (4.6-6.20); Red Cell Distribution Width 14.6 % (11.5-14.5); White Blood Count 8.8 K/mm3 (4.5-10.0)
[2024-08-22 07:23] LABS: Alanine Aminotransferase 22 U/L (6-50); Albumin Level 2.7 g/dL (3.5-5.1); Alkaline Phosphatase 63 U/L (38-126); Anion Gap 5 mmol/L (4-12); Aspartate Amino Transferase 34 U/L (17-59); Bilirubin,Total 0.5 mg/dL (0.2-1.3); Blood Urea Nitrogen 31 mg/dL (9-20); Calcium 7.5 mg/dL (8.4-10.2); Carbon Dioxide 22 mmol/L (22-30); Chloride 115 mmol/L (98-107); Estimated CRCL calculation 33 ml/min; Estimated Glomerular Filt Rate 41; Glucose 109 mg/dL (65-110); Potassium 3.8 mmol/L (3.4-5.0); Sodium 142 mmol/L (137-145)
[2024-08-22 07:31] LABS: Glucose Point of Care 113 mg/dl (65-105)
[2024-08-22] MEDS: FLUTICASONE/SALMETEROL 115-21 MCG INHALER 1 PUFF 2 PUFF INHALATION (08:47)
[2024-08-22] MEDS: EMPAGLIFLOZIN 10 MG TABLET BY MOUTH (10:02)
[2024-08-22] MEDS: carvediloL 25 MG TABLET PO (10:02)
[2024-08-22] MEDS: MEMANTINE 10 MG TABLET PO (10:02)
[2024-08-22] MEDS: ASPIRIN 81 MG CHEWABLE TABLET PO (10:02)
[2024-08-22] MEDS: ATORVASTATIN 40 MG TABLET 80 MG PO (10:02)
[2024-08-22] MEDS: GABAPENTIN 100 MG CAPSULE 200 MG PO (10:02)
[2024-08-22] MEDS: RIVAROXABAN 20 MG TABLET PO (10:02)
[2024-08-22] MEDS: DONEPEZIL HCL 5 MG TABLET PO (10:03)
[2024-08-22] MEDS: amLODIPine BESYLATE 5 MG TABLET PO (10:03)
[2024-08-22] MEDS: CYANOCOBALAMIN 1,000 MCG TABLET 1000 MCG PO (10:03)
[2024-08-22] MEDS: PANTOPRAZOLE 40 MG TABLET PO (10:03)
[2024-08-22] MEDS: CHOLECALCIFEROL 1,000 UNITS TABLET 1000 UNITS PO (10:03)
--- NOTE | 2024-08-22 10:08 | PC.NURSE ---
RN informed provider that pt had abx due to noon and PJ (provider) states that he will provide pt with PO abx if needed.
[2024-08-22 11:16] LABS: Glucose Point of Care 195 mg/dl (65-105)
--- NOTE | 2024-08-22 11:53 | PM.DS ---
DS: Admitting Diagnosis Discharge Date 08/22/2024 Admitting Diagnosis Altered mental status DS: Discharge Diagnosis Discharge Diagnosis (1) Altered mental status: Code(s): R41.82 - Altered mental status, unspecified Status: Acute (2) Near syncope: Code(s): R55 - Syncope and collapse Status: Acute (3) Renal failure: Code(s): N19 - Unspecified kidney failure Status: Acute (4) Macrocytic anemia: Code(s): D53.9 - Nutritional anemia, unspecified Status: Acute (5) Abnormal urinalysis: Code(s): R82.90 - Unspecified abnormal findings in urine Status: Acute (6) Hypertension: Code(s): I10 - Essential (primary) hypertension Status: Acute (7) Hyperlipidemia: Code(s): E78.5 - Hyperlipidemia, unspecified Status: Acute (8) Type 2 diabetes mellitus: Code(s): E11.9 - Type 2 diabetes mellitus without complications Status: Acute (9) Dementia: Code(s): F03.90 - Unspecified dementia, unspecified severity, without behavioral disturbance, psychotic disturbance, mood disturbance, and anxiety Status: Acute (10) Paroxysmal atrial fibrillation: Code(s): I48.0 - Paroxysmal atrial fibrillation Status: Acute DS: Summary Hospital Course Hospital Course: This is an 89-year-old male with history of dementia, paroxysmal atrial fibrillation, status post permanent pacemaker implantation, right lower extremity deep venous thrombosis, hypertension, hyperlipidemia, asthma, type 2 diabetes mellitus, gastroesophageal reflux disease, and prostate cancer who presented to the emergency department via EMS from [place] for evaluation of altered mental status. He is a poor historian and seems have significant short-term memory loss and a majority the following is obtained via a review of his EMR. He is also not entirely cooperative as ?I just want to bed and I do not want answer any more questions.? According to the ED notes, the patient was walking to breakfast when he paused and sat down the hallway. He seems to be much more confused than baseline and was brought in for evaluation. There are no reports of recent falls, head trauma, or illnesses. The patient has no complaints but again he is not answering all of my questions. He did specifically deny headache, cold and flu symptoms, chest pain, shortness of breath, abdominal pain, nausea, vomiting, diarrhea, and dysuria. In the ED: He was afebrile on arrival with blood pressures in the upper 90s to lower 100s systolic. The remainder of his vital signs were stable. Labs were significant for a WBC count of 7.0, hemoglobin 11.5, MCV 100.6, platelet 142, PT 29.7, INR 2.7, PTT 55.6, BUN 31, creatinine 2.10, glucose 161, total protein 6.0, albumin 2.9. Urinalysis was positive for 3+ protein, 3+ glucose, trace ketones, 1+ bilirubin, 3 to 5 rbc's, and 11 to 20 WBC. Rare bacteria, occasional squamous cells, and casts noted on microscopy. 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 He was given a L of normal saline and ceftriaxone 1 g for possible urinary tract infection. With shared medical decision-making, family felt more comfortable sending the patient back to [place]. Just before he was being discharged from the ED he passed a large bowel movement and had a brief episode of unresponsiveness and he is being admitted in this setting. During evaluation today patient was at baseline and was happy that he is going to get discharge. Patient urine culture resulted negative. And his WBC back to normal. Is ceftriaxone has been discontinued. Possibly patient advised speckles syncope after a bowel movement in the ED. EKG shows ventricular pacemaker. Patient also has diagnosis of iron dextran assist which would have contributed to his syncope. In the event of loss of consciousness, chest pain palpitation or shortness of breath please visit nearby ED. Time Spent with Patient Time attestation: Total time spent providing and/or coordinating discharge services: Exam Narrative: General: Nontoxic-appearing male lying on his right side in bed. Weight: 85.2 kg. BMI: 24.1. HEENT: Normocephalic, atraumatic. PERRL, EOMI. Sclera anicteric. Tacky mucous membranes. Oropharynx poorly visualized. Neck: Supple. No obvious thyromegaly or carotid bruits though he is not very cooperative with exam. Respiratory: Respirations are nonlabored. Lung sounds are diminished due to poor effort. Cardiovascular: Regular rate and rhythm with S1-S2. Gastrointestinal: Abdomen is soft, nontender, and nondistended with positive bowel sounds. Skin: Warm and dry. No rash or lesions on limited exam. Extremities: No cyanosis, clubbing, or edema. Atrophy of the lower legs. Radial and pedal pulses intact. Neurological: Alert to self. He was unable to answer any other orientation questions. Cranial nerves 2-12 are grossly intact. Speech is clear. No facial asymmetry. He did not participate in the rest of the neurologic exam. Psychiatric: Confused and calm. Occasionally cooperative. DS: Data Data Completed and Pending Labs on day of discharge: Labs from last 24 hours 08/22/24 08/22/24 08/22/24 11:12 07:28 06:46 WBC 8.8 RBC 3.57 L Hgb 11.3 L Hct 35.9 L MCV 100.6 H MCH 31.7 MCHC 31.5 L RDW 14.6 H Plt Count 154 MPV 9.3 Sodium 142 Potassium 3.8 Chloride 115 H Carbon Dioxide 22 Anion Gap 5 BUN 31 H Creatinine 1.60 H Estim Creat Clear Calc 33 Estimated GFR 41 L Glucose 109 POC Capillary Glucose 195 H 113 H Calcium 7.5 L Total Bilirubin 0.5 AST 34 ALT 22 Alkaline Phosphatase 63 Total Protein 6.0 L Albumin 2.7 L 08/21/24 08/21/24 08/21/24 21:31 16:23 15:17 WBC RBC Hgb Hct MCV MCH MCHC RDW Plt Count MPV Sodium Potassium Chloride Carbon Dioxide Anion Gap BUN Creatinine Estim Creat Clear Calc Estimated GFR Glucose POC Capillary Glucose 112 H 267 H 123 H Calcium Total Bilirubin AST ALT Alkaline Phosphatase Total Protein Albumin 08/21/24 12:39 WBC RBC Hgb Hct MCV MCH MCHC RDW Plt Count MPV Sodium Potassium Chloride Carbon Dioxide Anion Gap BUN Creatinine Estim Creat Clear Calc Estimated GFR Glucose POC Capillary Glucose 119 H Calcium Total Bilirubin AST ALT Alkaline Phosphatase Total Protein Albumin Discharge Plan Discharge Attending physician on discharge: Jose Burch Discharging Clinician: Jose Burch Patient Disposition: [facility] Retirement[facility]As[facility] Living Activity: as tolerated Diet: regular Discharge Instructions: Advised to visit nearby ED in case of fall. Patient Instructions: Antibiotic Form Stand Alone Forms: General Discharge Information Discharge Medications: Continued atorvastatin 80 mg tablet 80 mg PO DAILY carvedilol 25 mg tablet 25 mg PO BID donepezil 5 mg tablet 5 mg PO DAILY ketoconazole 2 % shampoo See Rx Instructions .ROUTE .COMPLEX Rx Instructions: every saturday and saturday amlodipine 5 mg tablet 5 mg PO DAILY glipizide 2.5 mg tablet extended release 24hr 2.5 mg PO DAILY omeprazole 20 mg capsule,delayed release(DR/EC) 20 mg PO DAILY Rx Instructions: Pt takes at lunch montelukast 10 mg tablet 10 mg PO DAILY Patient Comments: at night gabapentin 100 mg capsule 200 mg PO BID albuterol sulfate 90 mcg/actuation HFA aerosol inhaler 2 puff INHALATION Q6H PRN (Reason: Shortness Of Breath Or Wheezing) ketoconazole 2 % cream See Rx Instructions .ROUTE .COMPLEX PRN (Reason: fungal infection) Rx Instructions: place on affected area lisinopril 40 mg tablet 40 mg PO DAILY memantine 10 mg tablet 10 mg PO BID budesonide-formoterol 160-4.5 mcg/actuation HFA aerosol inhaler 2 puff INHALATION BID Xarelto 20 mg tablet 20 mg PO DAILY dapagliflozin propanediol [Farxiga] 5 mg tablet 5 mg PO DAILY Baby Aspirin 81 mg PO DAILY Vitamin 28 - 800 tablet PO DAILY Patient Comments: 28-800 mg-mcg tablets cholecalciferol (vitamin D3) 25 mcg PO BID cyanocobalamin (vitamin B-12) 1,000 mcg PO DAILY Date of admission: 08/20/24 13:56 Primary Care Provider: [place] Admitting Provider: Jose Burch Attending physician on admission: Jose Burch Condition: Stable Quality VTE Prophylaxis VTE prophylaxis: pharmacologic ordered (on rivaroxaban)
== END 2024-08-22 13:25 ==
LOC: ANHED 13:03 → ANH3MEDSUR 14:51
PROVIDERS: Physician Assistant; Admitting Provider General Practice; Emergency Provider Emergency Medicine; PCP Internal Medicine Infectious Disease; Visit Provider General Practice
DX: N19 Unspecified kidney failure (principal); R41.82 Altered mental status, unspecified; R55 Syncope and collapse; D53.9 Nutritional anemia, unspecified; R82.90 Unspecified abnormal findings in urine; I10 Essential (primary) hypertension; E78.5 Hyperlipidemia, unspecified; E11.9 Type 2 diabetes mellitus without complications; J45.909 Unspecified asthma, uncomplicated; F03.90 Unspecified dementia, unspecified severity, without behavioral disturbance, psychotic disturbance, mood disturbance, and anxiety; I48.0 Paroxysmal atrial fibrillation; K21.9 Gastro-esophageal reflux disease without esophagitis; Z86.73 Personal history of transient ischemic attack (TIA), and cerebral infarction without residual deficits; Z95.0 Presence of cardiac pacemaker; Z79.01 Long term (current) use of anticoagulants; Z79.51 Long term (current) use of inhaled steroids; Z79.82 Long term (current) use of aspirin; Z79.84 Long term (current) use of oral hypoglycemic drugs; Z87.891 Personal history of nicotine dependence; Z85.46 Personal history of malignant neoplasm of prostate; Z86.718 Personal history of other venous thrombosis and embolism
CPT/HCPCS: 36415; 70450; 71045; 80048; 80053; 81001; 82607; 82728; 82746; 82948; 83036; 83540; 83550; 83735; 84134; 84443; 85025; 85027; 85610; 85730; 87086; 87651; 93005; 94640; 96365; 96375; 99285; A9270; G0378; J0696; J1815; J2405; J7030; J7120